=== PATIENT | female | born 1980 | race Two or more races ===

== ENCOUNTER 2019-04-05 07:30 | Outpatient (CLI) | payer OTHER | END 2019-04-05 08:45 | disposition home or self-care (01) | LOC: SONOGRAMA 07:30 | DX: C73 Malignant neoplasm of thyroid gland (principal) ==

== ENCOUNTER 2020-09-02 09:25 | Outpatient (CLI) | payer OTHER | END 2020-09-02 09:38 | disposition home or self-care (01) | LOC: RX STUDY 09:25 | PROVIDERS: ATTEND Obstetrics & Gynecology Reproductive Endocrinology | DX: N93.0 Postcoital and contact bleeding (principal); N89.8 Other specified noninflammatory disorders of vagina ==